=== PATIENT | female | born 1935 | race Caucasian/White ===

== ENCOUNTER 2018-10-04 18:16 | Inpatient (IN) | payer OTHER ==
[2018-10-04 19:14] LABS: Absolute Lymphocytes (CBC) 0.6 K/uL (0.7-4.9); Absolute Monocytes 1.2 K/uL (0.1-1.3); Basophils % 0.2 % (0-1.3); Eosinophils % 0.6 % (0-4.4); Hematocrit 37.4 % (36.0-45.0); Lymphocytes % 4.1 % (15.3-44.8); MPV 8.7 fL (7.6-11.3); Monocytes % 8.8 % (3.3-12.3); RBC Red Blood Cell Count 4.02 M/uL (3.86-4.86)
[2018-10-04 19:41] LABS: ALT/SGPT 14 U/L (12-78); AST/SGOT 18 U/L (15-37); Albumin 3.3 g/dL (3.4-5.0); Alkaline Phosphatase 88 U/L (45-117); BUN Blood Urea Nitrogen 15 mg/dL (7-18); Bicarbonate 29 mmol/L (21-32); Bilirubin Total 0.5 mg/dL (0.2-1.0); CKMB Creatine Kinase MB 1.1 ng/mL (0.3-3.6); Creatine Phosphokinase 41 U/L (26-192); Glucose Level 116 mg/dL (74-106); Magnesium 2.2 mg/dL (1.8-2.4); Potassium 3.8 mmol/L (3.5-5.1); Sodium Level 138 mmol/L (136-145); Troponin I < 0.02 ng/mL (0.0-0.045)
[2018-10-04] MEDS: IPRATROPIUM BROM 0.5MG/2.5ML NEB SCH (19:55)
[2018-10-04 20:07] LABS: Blood Morphology Comment NOT SEEN (NOT SEEN); Platelet Estimate ADEQ; Urine White Blood Cell Casts OK
[2018-10-04] MEDS: CEFTRIAXONE/SWI 1gm 1 GM/10 ML SYR IVP SCH (20:33)
[2018-10-04 20:56] VITALS: BMI 15.6
--- NOTE | 2018-10-04 21:06 | RAD REPORT ---
EXAM DESCRIPTION: Aprilt Pa And Lat (2 Views)10/04/2018 8:57 pm CLINICAL HISTORY: Cough COMPARISON: August 2017 FINDINGS: The lungs are hyperaerated Mild right lung opacities are suspected. Left lung appears clear of acute infiltrate. The heart is normal size IMPRESSION: COPD Mild right lung opacities suspicious for pneumonia
[2018-10-04] MEDS: METHYLPREDNISOLONE 40 MG INJ IV SCH (22:17)
[2018-10-05] MEDS ORDERED: POTASSIUM 25 MEQ EFFERV TAB PO ONE (00:15)
[2018-10-05 01:05] LABS: Urine Appearance CLEAR; Urine Bilirubin NEGATIVE (NEG); Urine Blood NEGATIVE (NEG); Urine Color DK YELLOW; Urine Glucose NEGATIVE (NEG); Urine Protein 2+ (NEG); Urine Specific Gravity 1.025 (1.005-1.030); Urine Urobilinogen 0.2 mg/dL (0.2-1.0); Urine pH 6.5 (5.0-7.0)
[2018-10-05 01:10] LABS: Urine Microscopic Reflex ORDER UMIC
[2018-10-05] MEDS: METHYLPREDNISOLONE 40 MG INJ IV SCH ×3 (01:32→16:59)
[2018-10-05] MEDS: IPRATROPIUM BROM 0.5MG/2.5ML NEB SCH ×4 (02:10→20:00)
[2018-10-05 02:16] LABS: Urine Bacteria <20 /HPF (<20); Urine Culture Reflex Order REFLEXED; Urine Mucus SLIGHT /HPF (NONE SEEN); Urine RBC NONE SEEN /HPF (NONE SEEN)
--- NOTE | 2018-10-05 08:38 | EKG ---
Test Date: 2018-10-04 Test Time: 20:00:19 Underground Miner: RT-O MEASUREMENT RESULTS: Intervals: Rate: 113 AR: 164 QRSD: 68 QT: 330 QTc: 452 [place]: P: 87 AR: 164 QRS: 56 T: 70 INTERPRETIVE STATEMENTS: Sinus tachycardia Septal infarct, age undetermined Abnormal ECG Compared to ECG 08/23/2017 14:34:35 Myocardial infarct finding now present Electronically Signed On 10-05-18 08:36:43 CDT by Neil Abdi
[2018-10-05] MEDS: POLYETHYLENE GLYCOL 17 GM PO SCH ×3 (09:00→20:20)
[2018-10-05] MEDS: MAGNESIUM OXIDE PO SCH ×3 (09:09→20:18)
[2018-10-05] MEDS: CEFTRIAXONE/SWI 1gm 1 GM/10 ML SYR IVP SCH (09:09)
[2018-10-05] MEDS: HOME MED 1 EA UNK (Fluticasone/Salmeterol [Advair 250-50 Diskus] 1 PUFF) IH SCH ×2 (09:11→20:17)
[2018-10-05] MEDS: AZITHROMYCIN IV 250 MG in NA CHLORIDE 0.9% 250 ML IVPB SCH (09:12)
[2018-10-05] MEDS: HYDROMORPHONE 4 MG PO PRN (09:44)
--- NOTE | 2018-10-05 17:11 | HP ---
Date of Admission: 10/04/2018 Chief Complaint: Chest pain and shortness of breath. History Of Present Illness: An 83-year-old, very pleasant female patient who has severe COPD, who is oxygen dependent, came into office with her today with complaints of what she thinks is pleu risy causing chest pain. She started to have these symptoms for last 2-3 days. Her pain has been mo re or less continuous. Denies any fall injury. No rash. No fever, chills. She has severe COPD, an d she is on continuous home oxygen, which she has been using it. She is taking all her medications a s usual. Denies any expectoration or hemoptysis. She says that her shortness of breath is lot worse in last 2-3 days than before. After she was evaluated, she was admitted to hospital with concerns a bout COPD exacerbation and pneumonia. There is no aggravating or relieving factor as far as her pain is concerned. Review of Systems: Respiratory: As mentioned above. All other systems reviewed and negative. Allergies: SHE IS ALLERGIC TO PENICILLIN, SULFA, CODEINE. SHE HAS SIDE EFFECT FROM ACTONEL, FOSAMAX , AND BONIVA, ALL CAUSING EITHER STOMACH UPSET OR BODY ACHE, AND PAIN TYPE OF SIDE EFFECT. Medications: List reviewed. Family History: Not pertinent. Social History: Prior history of smoking, not at present time. Use of alcohol, negative. Past Medical History: Severe COPD, osteoporosis, osteoarthritis, allergic rhinitis, diverticulosis. Past Surgical History: Bladder suspension, cholecystectomy, hysterectomy, arthroscopic knee surgery, back surgery, appendectomy, retinal detachment surgery. Physical Examination: Vital Signs: Height 5 feet 2 inches, weight 85 pounds, temperature 98.7, pulse 107, respiratory rate 20, blood pressure 148/66, oxygen saturation 93% on 2 L nasal cannula oxygen. General: The patient is a thin, cachectic looking, appears weaker than usual. HEENT: Head atraumatic, normocephalic. Conjunctivae nonerythematous. Sclerae white. Mouth, no thr ush or edema noted. Ears/Nose, no mass, lesion, discharge noted. Neck: Supple. No JVD, lymph nodes, bruit, thyromegaly noted. Lungs: Diminished air entry in the right lower lung region. Occasional wheezing noted with expirati on. No rales. Heart: Normal heart sounds, no murmur or gallop. Abdomen: Soft, bowel sounds normal. No guarding, rigidity, tenderness, mass, hepatosplenomegaly, dis tention, or bruit noted. Extremities: No leg edema. No calf tenderness. Skin: No rash, ulcer, cellulitis. Lymphatics: No lymph node enlargement in neck, supraclavicular, infraclavicular region. Neuro: No focal neurological deficit. Chest: Unremarkable. External Genitalia: Deferred. Rectal: Deferred. Laboratory Data: Chest x-ray done after admission shows COPD changes and right lung opacity suspicio us for pneumonia. White count 13.9, hemoglobin 12.2, platelets 244. Sodium 138, potassium 3.8, chloride 100, bicarb 29 , BUN 15, creatinine 0.85, glucose 116. Liver function tests unremarkable. Troponin less than 0.02. Procalcitonin 0.96. TSH 2.7. Lactic acid 2.0. Urinalysis, 1+ leukocyte esterase, 20-50 WBC, bact eria less than 20. Impression: 1.Acute exacerbation of chronic obstructive pulmonary disease. 2.Pneumonia. 3.Diverticulosis. 4.Allergic rhinitis. 5.Osteoarthritis, multiple sites. 6.Osteoporosis. Plan: Admit the patient to hospital for further evaluation and management of this problem. The [facility] ent is appropriate for inpatient and is expected to spend 2 midnights in hospital. We will continue home medications per order. SCD was ordered for DVT prophylaxis. We will start IV antibiotics, whic h are ceftriaxone and azithromycin IV steroid, and nebulizer treatment per order. Fall precaution wa s ordered. We will consult Physical Therapy to help ambulate the patient, and details and plan of tr eatment discussed with the patient. I will see her tomorrow for followup. AICHA/MODL Voice ID: [id number]
[2018-10-05] MEDS ORDERED: METHYLPREDNISOLONE 40 MG INJ IV SCH (20:00)
[2018-10-05] MEDS: SENNOSIDES PO SCH (20:18)
[2018-10-06] MEDS: HYDROMORPHONE 4 MG PO PRN ×3 (00:03→22:53)
[2018-10-06] MEDS: METHYLPREDNISOLONE 40 MG INJ IV SCH (00:05)
[2018-10-06] MEDS: IPRATROPIUM BROM 0.5MG/2.5ML NEB SCH ×4 (02:00→20:00)
--- NOTE | 2018-10-06 02:40 | PN ---
Date of Progress Note: 10/05/2018 Subjective: The patient was seen this morning for followup. No new complaints, problems reported by the patient. Overall, she feels better today than yesterday. Objective: Vital Signs: Reviewed. HEENT: Unremarkable. Lungs: Bilateral good equal air entry. Presence of some rales noted in right lower lung abbasi. Heart: Sounds normal. Abdomen: Soft. Bowel sounds normoactive. No guarding, rigidity, tenderness, distention. Extremities: No leg edema. Impression: 1.Pneumonia. 2.Acute exacerbation of COPD. Plan: We will continue current medication, oxygen, nebulizer treatment, steroid, antibiotics. Ambul ation was encouraged. I will see her tomorrow for followup. Possible discharge sometime over this w eekend. Details were discussed with the patient. AICHA/MODL Voice ID: [id number] Report ID: [id number]
[2018-10-06] MEDS: ENSURE CLEAR 200 ML CAN PO SCH ×2 (09:00→20:13)
[2018-10-06] MEDS: AZITHROMYCIN IV 250 MG in NA CHLORIDE 0.9% 250 ML IVPB SCH (09:07)
[2018-10-06] MEDS: CEFTRIAXONE/SWI 1gm 1 GM/10 ML SYR IVP SCH (09:07)
[2018-10-06] MEDS: MAGNESIUM OXIDE PO SCH ×2 (09:08→20:08)
[2018-10-06] MEDS: HOME MED 1 EA UNK (Fluticasone/Salmeterol [Advair 250-50 Diskus] 1 PUFF) IH SCH ×2 (09:08→20:10)
[2018-10-06] MEDS: predniSONE 20 MG TAB PO SCH (09:11)
--- NOTE | 2018-10-06 16:35 | RAD REPORT ---
EXAM DESCRIPTION: Carmine Pa And Lat (2 Views)10/06/2018 4:25 pm CLINICAL HISTORY: Cough COMPARISON: October 04 FINDINGS: Mild improvement in right lung opacities Left lung appears clear of acute infiltrate. Lungs are hyperaerated. The heart is normal size IMPRESSION: Mild improvement in the right pneumonia
[2018-10-06] MEDS: POLYETHYLENE GLYCOL 17 GM PO SCH (20:07)
[2018-10-06] MEDS: SENNOSIDES PO SCH (20:08)
--- NOTE | 2018-10-07 00:25 | PN ---
Date of Progress Note: 10/06/2018 Subjective: The patient was seen this morning for followup. No new complaints or problems reported by her. Overall, she feels better. Objective: Vital Signs: Reviewed. HEENT: Unremarkable. Lungs: Bilateral good equal air entry. Not using accessory muscles of respiration. Presence of laura e rales noted in right lung base area. Overall better than before. Heart: Sounds normal. Abdomen: Soft. Bowel sounds normal. No guarding, rigidity, tenderness, distention. Extremities: No leg edema. Impression: 1.Pneumonia. 2.Acute exacerbation of chronic obstructive pulmonary disease. 3.Osteoarthritis, multiple sites. 4.Chronic constipation. Plan: The patient reports having bowel movement yesterday. We will continue her current home medica tions. Continue IV antibiotic and oxygen nebulizer treatment. We will repeat chest x-ray today. Di scontinue IV steroid. Start oral prednisone per order. Possible discharge to go home over this week end depending on the patient's condition and chest x-ray results. AICHA/MODL Voice ID: [id number] Report ID: [id number]
[2018-10-07] MEDS: IPRATROPIUM BROM 0.5MG/2.5ML NEB SCH ×4 (02:00→20:00)
[2018-10-07] MEDS: CEFTRIAXONE/SWI 1gm 1 GM/10 ML SYR IVP SCH (08:02)
[2018-10-07] MEDS: predniSONE 20 MG TAB PO SCH (08:02)
[2018-10-07] MEDS: AZITHROMYCIN IV 250 MG in NA CHLORIDE 0.9% 250 ML IVPB SCH (08:03)
[2018-10-07] MEDS: HYDROMORPHONE 4 MG PO PRN ×3 (08:03→23:16)
[2018-10-07] MEDS: ENSURE CLEAR 200 ML CAN PO SCH ×2 (08:06→20:32)
[2018-10-07] MEDS: MAGNESIUM OXIDE PO SCH ×2 (08:07→20:32)
[2018-10-07] MEDS: HOME MED 1 EA UNK (Fluticasone/Salmeterol [Advair 250-50 Diskus] 1 PUFF) IH SCH ×2 (08:07→20:29)
[2018-10-07 10:15] LABS: Absolute Lymphocytes (CBC) 0.6 K/uL (0.7-4.9); Absolute Monocytes 0.9 K/uL (0.1-1.3); Absolute Neutrophil 7.3 K/uL (1.8-8.0); Basophils % 0.9 % (0-1.3); Eosinophils % 0.1 % (0-4.4); Hematocrit 31.1 % (36.0-45.0); Lymphocytes % 6.2 % (15.3-44.8); MPV 8.5 fL (7.6-11.3); Monocytes % 10.3 % (3.3-12.3); RBC Red Blood Cell Count 3.33 M/uL (3.86-4.86)
[2018-10-07] MEDS: FAMOTIDINE 20 MG/2 ML VIAL IV SCH (13:13)
--- NOTE | 2018-10-07 16:38 | PN ---
Date of Progress Note: 10/07/2018 Subjective: The patient was seen this morning for followup. No new complaints or problems reported by the patient. Denies any blood in stool, but yesterday nursing staff noted that her stool was dark green in color to maybe black in color. Denies any abdominal pain, heartburn, indigestion. Shortne ss of breath is better. She is ambulating better. Overall, she feels better as far as pneumonia is concerned. Objective: Vital Signs: Reviewed. HEENT: Unremarkable. Lungs: Bilateral good equal air entry. Not using accessory muscles of respiration. Minimum rales i n the right lung base, overall significantly better than before. Heart: Sounds normal. Abdomen: Soft. Bowel sounds normal. No guarding, rigidity, tenderness, or distention. Extremities: No leg edema. Laboratory Data: White count 8.8, hemoglobin 10.3, platelets 305. Shows improvement in right lower lobe pneumonia. Impression: 1.Pneumonia. 2.Anemia. 3.Acute exacerbation of chronic obstructive pulmonary disease. Plan: We will go ahead and continue oxygen nebulizer treatment, oral prednisone and IV antibiotics f or pneumonia and COPD treatment. The patient's hemoglobin today is 10.3. Upon admission on 10/05/19 19, hemoglobin was 12.2. We will go ahead and order stool guaiac as well as we will repeat blood wor k tomorrow. Depending on patient's condition and blood work results, we will decide if we can plan f or discharge tomorrow or not. We will start patient on IV Pepcid 20 mg IV daily starting today. AICHA/MODL Voice ID: [id number] Report ID: [id number]
[2018-10-07] MEDS: SENNOSIDES PO SCH (20:30)
[2018-10-07] MEDS: POLYETHYLENE GLYCOL 17 GM PO SCH (20:32)
[2018-10-08] MEDS: IPRATROPIUM BROM 0.5MG/2.5ML NEB SCH ×2 (02:00→08:06)
[2018-10-08] MEDS: HYDROMORPHONE 4 MG PO PRN (06:24)
[2018-10-08 07:16] LABS: Absolute Lymphocytes (CBC) 1.5 K/uL (0.7-4.9); Absolute Monocytes 1.1 K/uL (0.1-1.3); Absolute Neutrophil 6.6 K/uL (1.8-8.0); Basophils % 0.2 % (0-1.3); Eosinophils % 0.3 % (0-4.4); Hematocrit 30.9 % (36.0-45.0); Lymphocytes % 16.2 % (15.3-44.8); MPV 7.9 fL (7.6-11.3); Monocytes % 12.1 % (3.3-12.3); RBC Red Blood Cell Count 3.34 M/uL (3.86-4.86)
[2018-10-08] MEDS: HOME MED 1 EA UNK (Fluticasone/Salmeterol [Advair 250-50 Diskus] 1 PUFF) IH SCH (08:04)
[2018-10-08] MEDS: MAGNESIUM OXIDE PO SCH (08:04)
[2018-10-08] MEDS: AZITHROMYCIN IV 250 MG in NA CHLORIDE 0.9% 250 ML IVPB SCH (08:05)
[2018-10-08] MEDS: predniSONE 20 MG TAB PO SCH (08:06)
[2018-10-08] MEDS: CEFTRIAXONE/SWI 1gm 1 GM/10 ML SYR IVP SCH (08:06)
[2018-10-08] MEDS: FAMOTIDINE 20 MG/2 ML VIAL IV SCH (08:07)
[2018-10-08] MEDS: ENSURE CLEAR 200 ML CAN PO SCH (08:08)
[2018-10-08 08:36] LABS: BUN Blood Urea Nitrogen 21 mg/dL (7-18); Bicarbonate 31 mmol/L (21-32); Glucose Level 82 mg/dL (74-106); Potassium 3.9 mmol/L (3.5-5.1); Sodium Level 143 mmol/L (136-145)
[2018-10-08 08:37] VITALS: O2SAT 97
[2018-10-08 14:40] VITALS: BP 146/67; TEMP 98.8
--- NOTE | 2018-10-09 11:46 | DS ---
Date of Discharge: 10/08/2018 Disposition: Discharged to go home. Physical Examination: HEENT: Examination unremarkable. Lungs: Clear to auscultation. Heart: Sounds normal. Abdomen: Soft. Bowel sounds normal. No guarding, rigidity, tenderness, or distention. Extremities: No leg edema. Laboratory Data: Labs done during this hospitalization, white count, initially when she was admitted on 10/04/2018, was 13.9, hemoglobin 12.2, platelets 244. Last white count today 9.3, hemoglobin 10. 4, platelets 337. Yesterday, hemoglobin was 10.3, white count 8.8, platelets 305. Upon admission, s odium 138, potassium 3.8, chloride 100, bicarb 29, BUN 15, creatinine 0.85, glucose 116. Lactic acid 2, procalcitonin 0.96. Liver function tests unremarkable. Today, sodium 143, potassium 3.9, chlori de 106, bicarb 31, BUN 21, creatinine 0.55, glucose 80. Hospital Course: This is an 83-year-old female patient, admitted to the hospital after she came into office with chest pain and shortness of breath. Please see dictated H and P for more information. The patient had atypical chest pain due to pneumonia. Chest x-ray revealed presence of COPD and righ t lung opacity suspicious for pneumonia. She was treated with oxygen nebulizer treatment, IV steroid , and IV antibiotics. Overall, her condition has improved back to her baseline. She is ambulating w ell, has a good appetite and medically she is stable for discharge. She is ambulating well. She has continuous home oxygen that she uses. Her other medical problems remained stable during this hospit alization. Repeat chest x-ray done yesterday shows improvement in her pneumonia. The patient was re ported to have dark green to black colored stool, so yesterday, we did stool guaiac, which was negati ve. Hemoglobin was 10.3 yesterday, today it is 10.4. There is no evidence of any GI blood loss. Final Diagnoses: 1.Acute exacerbation of chronic obstructive pulmonary disease. 2.Pneumonia. 3.Anemia, unspecified. 4.Diverticulosis. 5.Allergic rhinitis. 6.Osteoarthritis, multiple sites. 7.Osteoporosis. Discharge Medications And Instructions: 1.Continue all prior home medications. 2.Prednisone 10 mg, the patient is to take 2 tablets daily for 2 days, then 1 tablet daily for 2 day s, then half tablet daily for 2 days, then stop, take it with food. 3.Cefuroxime 250 mg, the patient is to take 1 tablet 2 times a day for 1 week with food. 4.Azithromycin 250 mg p.o. daily for 4 days, take it with food. 5.Follow up at my office a week after next. AICHA/CHRISSIE Voice ID: [id number] Report ID: [id number]
== END 2018-10-08 13:00 | disposition home or self-care (01) | DRG 190 ==
LOC: 2ND 18:16
PROVIDERS: ADMIT Internal Medicine; ATTEND Internal Medicine
DX: J44.1 Chronic obstructive pulmonary disease with (acute) exacerbation (principal); J18.9 Pneumonia, unspecified organism; J44.0 Chronic obstructive pulmonary disease with (acute) lower respiratory infection; Z87.891 Personal history of nicotine dependence; Z99.81 Dependence on supplemental oxygen; K57.90 Diverticulosis of intestine, part unspecified, without perforation or abscess without bleeding; D64.9 Anemia, unspecified; K59.09 Other constipation; J30.9 Allergic rhinitis, unspecified; M15.9 Polyosteoarthritis, unspecified; M81.0 Age-related osteoporosis without current pathological fracture; Z88.5 Allergy status to narcotic agent; Z88.0 Allergy status to penicillin; Z88.2 Allergy status to sulfonamides
CPT/HCPCS: 36415; 71046; 80048; 80053; 81003; 81015; 82274; 82550; 82553; 83605; 83735; 84132; 84145; 84443; 84484; 85025; 87086; 87088; 93005; 97116; 97163; 97530; J0456; J0696; J2920; J7512

== ENCOUNTER 2019-05-23 17:56 | Inpatient (IN) | payer OTHER ==
[2019-05-23] MEDS ORDERED: AZITHROMYCIN IV 500 MG in NA CHLORIDE 0.9% 250 ML IVPB ONE (19:22)
[2019-05-23] MEDS: IPRATROPIUM BROM 0.5MG/2.5ML NEB SCH (20:00)
[2019-05-23] MEDS: ALBUTEROL 2.5 MG/3 ML NEB SOL NEB SCH (20:00)
--- NOTE | 2019-05-23 20:13 | RAD REPORT ---
EXAM DESCRIPTION: RAD - Chest Pa And Lat (2 Views) - 05/23/2019 8:00 pm CLINICAL HISTORY: pneumonia Chest pain. COMPARISON: Chest Pa And Lat (2 Views) dated 10/06/2018; Chest Pa And Lat (2 Views) dated 10/04/2018; Chest Single View dated 08/23/2017; Chest Single View dated 04/13/2016 FINDINGS: A very prominent emphysematous pattern is seen throughout the lungs. Subtle opacities in t he right costophrenic angle may represent a mild area of infiltrate or aspiration. The heart is shailesh l in size. No displaced fractures. IMPRESSION: Subtle infiltrate or aspiration in the right costophrenic angle suspected.
[2019-05-23 20:49] LABS: Absolute Lymphocytes (CBC) 0.8 K/uL (0.7-4.9); Basophils % 0.4 % (0-1.3); Hematocrit 35.2 % (36.0-45.0); Lymphocytes % 10.6 % (15.3-44.8); MPV 9.3 fL (7.6-11.3); RBC Red Blood Cell Count 3.81 M/uL (3.86-4.86)
[2019-05-23] MEDS ORDERED: CEFTRIAXONE 1 GM/NS 50 ML 1 GM/50 ML BAG IV SCH (21:00)
[2019-05-23 21:11] LABS: Albumin 3.5 g/dL (3.4-5.0); Bilirubin Total 0.4 mg/dL (0.2-1.0); Magnesium 2.1 mg/dL (1.8-2.4); Potassium 3.8 mmol/L (3.5-5.1); Protein, Total 7.4 g/dL (6.4-8.2); Thyroid Stimulating Hormone 2.92 uIU/mL (0.360-3.740)
[2019-05-23] MEDS ORDERED: AZITHROMYCIN 500 MG INJ IVPB ONE (22:16)
[2019-05-23] MEDS ORDERED: NA CHLORIDE 0.9% 500 ML ONE (22:37)
[2019-05-23] MEDS ORDERED: CEFTRIAXONE/SWI 1gm 1 GM/10 ML SYR ONE (22:43)
[2019-05-24] MEDS: METHYLPREDNISOLONE 40 MG INJ IV SCH ×3 (01:08→16:10)
[2019-05-24] MEDS: IPRATROPIUM BROM 0.5MG/2.5ML NEB SCH ×4 (02:00→19:20)
[2019-05-24] MEDS: ALBUTEROL 2.5 MG/3 ML NEB SOL NEB SCH ×4 (02:00→19:20)
[2019-05-24] MEDS ORDERED: HYDROMORPHONE ORAL 4 MG TAB PO PRN (06:51)
--- NOTE | 2019-05-24 07:23 | HP ---
Date of Admission: 05/23/2019 Chief Complaint: Cough, congestion, shortness of breath. History Of Present Illness: This is 83-year-old, very frail female patient who has advanced COPD, on continuous home oxygen, came into office with her with 2 days history of cough, chest conges tion, coughing up some mucus which is white to slightly yellow in color, having low-grade fever and s hortness of breath and wheezing. Since she is sick, she gets short of breath just taking 3 to 4 step s and she gets short of breath and has to sit down. She uses her oxygen all the time. She also has lot of wheezing with this. After she was evaluated I was concerned about pneumonia and COPD exacerba tion and she was admitted to the hospital with this problem for further evaluation and management. Review of Systems: Respiratory: As mentioned above. Constitutional: As mentioned above. All other systems reviewed and negative. Allergies: TO SULFA, PENICILLIN, CODEINE, HAD SIDE EFFECTS FROM ACTONEL, FOSAMAX AND BONIVA EITHER C AUSING STOMACH UPSET OR BODY ACHE TYPE OF SIDE EFFECT. Medications: List reviewed. Family History: Not pertinent. Social History: Prior history of smoking, not at present time. Use of alcohol negative. Past Medical History: Severe COPD for which she is oxygen dependent, osteoporosis, osteoarthritis at multiple sites, allergic rhinitis, diverticulosis. Past Surgical History: Bladder suspension, cholecystectomy, hysterectomy, arthroscopic knee surgery, back surgery, appendectomy, retinal detachment surgery. Physical Examination: Vital Signs: Height 5 feet, weight 78 pounds, temperature 96.9, pulse 94, respiratory rate 18, blood pressure 124/70, oxygen saturation 94%. This was on 2 L nasal cannula oxygen. General: Patient appears weak and tired and slightly sleepy looking, not in any respiratory distress at rest but just taking 3 or 4 steps in the exam room. She gets into mild distress which gets stephen r when she sits down to rest. HEENT: Head atraumatic, normocephalic. Conjunctivae nonerythematous. Sclerae white. Mouth, no thr ush or edema noted. Ears/Nose, no mass, lesion, discharge noted. Neck: Supple. No JVD, lymph nodes, bruit, thyromegaly noted. Lungs: Presence of rales noted in the right lower lung region. Heart: Normal heart sounds, no murmur or gallop. Abdomen: Soft, bowel sounds normal. No guarding, rigidity, tenderness, mass, hepatosplenomegaly, dis tention, or bruit noted. Extremities: No leg edema. No calf tenderness. Skin: No rash, ulcer, cellulitis. Lymphatics: No lymph node enlargement in neck, supraclavicular, infraclavicular region. Neuro: No focal neurological deficit. Chest: Unremarkable. External Genitalia: Deferred. Rectal: Deferred. Laboratory Data: White count 7.6, hemoglobin 11.7, platelets 153. Sodium 140, potassium 3.8, chlori de 103, bicarb 31, BUN 33, creatinine 0.94, glucose 104. Liver function tests unremarkable, procalci tonin 0.67. TSH 2.92. Chest x-ray shows right lower lobe pneumonia. Impression: 1.Pneumonia. 2.Acute exacerbation of chronic obstructive pulmonary disease. 3.Anemia, unspecified. 4.Osteoarthritis, multiple sites. 5.Diverticulosis. 6.Allergic rhinitis. 7.Osteoporosis. 8.Admit patient to hospital for further evaluation and management of this problem. The patient is a ppropriate for inpatient and is expected to spend 2 midnights in hospital. We will go ahead and give her oxygen nebulizer treatment, IV steroid, IV antibiotic, which will be azithromycin and ceftriaxon e. SCD was ordered for DVT prophylaxis. Home medications will be continued per order and we will se e her tomorrow for followup. I also talked to her about her advance directive in presence of her hus band and in the event of cardiopulmonary arrest. Patient and her , they both agree that she w ould not want any heroic measures like CPR, defibrillation, or ventilator support and they requested comfort care to be provided in those situation and DNR order was written in the chart. I will see he r tomorrow morning for followup. AICHA/MODL Voice ID: [id number]
[2019-05-24] MEDS ORDERED: HYDROCODONE/APAP 5/325 MG TAB ONE (07:40)
[2019-05-24] MEDS: HOME MED 1 EA UNK (Fluticasone/Salmeterol [Advair 250-50 Diskus] 1 PUFF) IH SCH ×2 (08:46→20:40)
[2019-05-24] MEDS: CEFTRIAXONE/SWI 1gm 1 GM/10 ML SYR IV SCH ×2 (08:46→20:35)
[2019-05-24] MEDS: HOME MED 1 EA UNK (Umeclidinium Bromide [Incruse Ellipta] 1 PUFF) IH SCH (09:00)
[2019-05-24] MEDS: AZITHROMYCIN IV 250 MG in NA CHLORIDE 0.9% 250 ML IVPB SCH (09:36)
[2019-05-24 17:43] VITALS: BMI 15.2
[2019-05-24] MEDS: POLYETHYL GLY 3350 17 GM/DOSE PO SCH (20:35)
[2019-05-24] MEDS: PROMOD 30 ML DOSE PO SCH (20:35)
[2019-05-24] MEDS: SENOSIDES 8.6 MG TAB PO SCH (20:39)
--- NOTE | 2019-05-25 01:02 | PN ---
Date of Progress Note: 05/24/2019 Subjective: The patient was seen this morning for followup. Her was present with her at bedside. She looks better than yesterday, feels better than yesterday. Does not look as tired as yesterday. Objective: Vital Signs: Reviewed. HEENT: Unremarkable. Lungs: Bilateral good equal air entry, presence of rales noted in the right lower lung field, unchanged from yesterday. Heart: Heart sounds normal. Abdomen: Soft, bowel sounds normal. No guarding, rigidity, tenderness, or distention. Extremities: No leg edema. Impression: 1. Pneumonia. 2. Acute exacerbation of chronic obstructive pulmonary disease. 3. Chronic back pain. 4. Chronic constipation. Plan: We will continue current medication, oxygen, nebulizer treatment, steroids, antibiotics. We will consult Physical Therapy to help ambulate the patient. I will see her tomorrow for followup. We will repeat chest x-ray tomorrow. Possible discharge to go home tomorrow depending on her condition and chest x-ray result. AICHA/CHRISSIE Voice ID: [id number] Report ID: [id number] MTDD
[2019-05-25] MEDS: METHYLPREDNISOLONE 40 MG INJ IV SCH ×3 (01:08→17:25)
[2019-05-25] MEDS: ALBUTEROL 2.5 MG/3 ML NEB SOL NEB SCH ×4 (01:55→19:39)
[2019-05-25] MEDS: IPRATROPIUM BROM 0.5MG/2.5ML NEB SCH ×4 (01:55→19:39)
[2019-05-25] MEDS: HOME MED 1 EA UNK (Fluticasone/Salmeterol [Advair 250-50 Diskus] 1 PUFF) IH SCH ×2 (08:02→20:00)
[2019-05-25] MEDS: CEFTRIAXONE/SWI 1gm 1 GM/10 ML SYR IV SCH ×2 (08:03→20:00)
[2019-05-25] MEDS: HOME MED 1 EA UNK (Umeclidinium Bromide [Incruse Ellipta] 1 PUFF) IH SCH (08:03)
[2019-05-25] MEDS: AZITHROMYCIN IV 250 MG in NA CHLORIDE 0.9% 250 ML IVPB SCH (08:03)
[2019-05-25] MEDS: PROMOD 30 ML DOSE PO SCH ×2 (08:03→20:00)
--- NOTE | 2019-05-25 15:32 | EKG ---
Test Date: 2019-05-25 Test Time: 12:59:58 Steam Generating Powerplant Mechanic: ANSLEY MEASUREMENT RESULTS: Intervals: Rate: 105 MD: 172 QRSD: 78 QT: 334 QTc: 441 [place]: P: 84 MD: 172 QRS: 78 T: 74 INTERPRETIVE STATEMENTS: Sinus tachycardia Right atrial enlargement Borderline ECG Compared to ECG 10/04/2018 20:00:19 Atrial abnormality now present Myocardial infarct finding no longer present Electronically Signed On 05-25-19 15:30:53 MANAGER SAFE by Neil Abdi
--- NOTE | 2019-05-25 18:32 | PN ---
Date of Progress Note: 05/25/2019 Subjective: Patient was seen this morning for followup. She still has lot of cough, chest congestio n, gets short of breath with activity, but overall feels better today than yesterday. Objective: Vital Signs: Reviewed. HEENT: Unremarkable. Lungs: Bilateral good equal entry. Presence of some rales noted in lower half of right lung field. Heart: Sounds normal. Abdomen: Soft. Bowel sounds normal. No guarding, rigidity, tenderness, or distention. Extremities: No leg edema. Impression: 1.Pneumonia. 2.Acute exacerbation of chronic obstructive pulmonary disease. Plan: We will continue current medication. Continue oxygen, steroid antibiotic, nebulizer treatment and after I saw the patient while she was on telemetry, monitor her heart rate went up to 140 and junior muller called me with that. Nurse was instructed to evaluate the patient and get a stat EKG, vital sign s, and we will decide further plan depending on those findings. AICHA/MODL Voice ID: [id number] Report ID: [id number]
[2019-05-25] MEDS: SENOSIDES 8.6 MG TAB PO SCH (19:59)
[2019-05-25] MEDS: POLYETHYL GLY 3350 17 GM/DOSE PO SCH (19:59)
[2019-05-26] MEDS: ALBUTEROL 2.5 MG/3 ML NEB SOL NEB SCH ×3 (02:15→14:35)
[2019-05-26] MEDS: IPRATROPIUM BROM 0.5MG/2.5ML NEB SCH ×4 (02:15→19:50)
[2019-05-26 05:36] LABS: Magnesium 1.9 mg/dL (1.8-2.4); Potassium 3.2 mmol/L (3.5-5.1)
[2019-05-26 05:57] LABS: Absolute Lymphocytes (CBC) 0.4 K/uL (0.7-4.9); Basophils % 0.1 % (0-1.3); Lymphocytes % 7.4 % (15.3-44.8); MPV 9.5 fL (7.6-11.3)
[2019-05-26] MEDS: CEFTRIAXONE/SWI 1gm 1 GM/10 ML SYR IV SCH ×2 (08:25→20:21)
[2019-05-26] MEDS: METHYLPREDNISOLONE 40 MG INJ IV SCH ×3 (08:25→16:21)
[2019-05-26] MEDS: AZITHROMYCIN IV 250 MG in NA CHLORIDE 0.9% 250 ML IVPB SCH (08:26)
[2019-05-26] MEDS: HOME MED 1 EA UNK (Fluticasone/Salmeterol [Advair 250-50 Diskus] 1 PUFF) IH SCH ×2 (08:26→20:21)
[2019-05-26] MEDS: PROMOD 30 ML DOSE PO SCH ×2 (08:26→20:21)
[2019-05-26] MEDS: HOME MED 1 EA UNK (Umeclidinium Bromide [Incruse Ellipta] 1 PUFF) IH SCH (08:27)
[2019-05-26] MEDS ORDERED: POTASSIUM 25 MEQ EFFERV TAB PO ONE (09:00)
[2019-05-26 09:28] LABS: Urine White Blood Cell Casts OK
[2019-05-26 09:29] LABS: Anisocytosis 1+; Blood Morphology Comment NOTED (NOT SEEN); Platelet Estimate ADEQ
--- NOTE | 2019-05-26 10:20 | RAD REPORT ---
EXAM DESCRIPTION: RAD - Chest Pa And Lat (2 Views) - 05/26/2019 9:10 am CLINICAL HISTORY: pneumonia Chest pain. COMPARISON: Chest Pa And Lat (2 Views) dated 05/23/2019; Chest Pa And Lat (2 Views) dated 10/06/2018; Chest Pa And Lat (2 Views) dated 10/04/2018; Chest Single View dated 08/23/2017 FINDINGS: Emphysematous changes are present throughout the lungs. Poorly defined scarring is present in both lung apices. Mild to moderate improvement is seen in the ill-defined opacity in the right co stophrenic sulcus. The heart is normal in size. No displaced fractures. IMPRESSION: COPD is present with mild to moderate improvement in right lung base infiltrate since co mparative study.
[2019-05-26] MEDS ORDERED: POTASSIUM CL SA 10 MEQ TAB PO ONE (13:27)
[2019-05-26] MEDS: LEVALBUTEROL 0.63 MG/3 ML NEB NEB SCH (19:50)
[2019-05-26] MEDS: SENOSIDES 8.6 MG TAB PO SCH (20:20)
[2019-05-26] MEDS: POLYETHYL GLY 3350 17 GM/DOSE PO SCH (20:21)
[2019-05-27] MEDS: METHYLPREDNISOLONE 40 MG INJ IV SCH ×2 (00:02→08:23)
[2019-05-27] MEDS: IPRATROPIUM BROM 0.5MG/2.5ML NEB SCH ×4 (01:00→19:40)
[2019-05-27] MEDS: LEVALBUTEROL 0.63 MG/3 ML NEB NEB SCH ×4 (01:00→19:40)
[2019-05-27 06:59] LABS: Potassium 3.9 mmol/L (3.5-5.1)
[2019-05-27] MEDS: PROMOD 30 ML DOSE PO SCH ×2 (08:19→20:42)
[2019-05-27] MEDS: AZITHROMYCIN IV 250 MG in NA CHLORIDE 0.9% 250 ML IVPB SCH (08:23)
[2019-05-27] MEDS: CEFTRIAXONE/SWI 1gm 1 GM/10 ML SYR IV SCH ×2 (08:23→20:41)
[2019-05-27] MEDS: HOME MED 1 EA UNK (Fluticasone/Salmeterol [Advair 250-50 Diskus] 1 PUFF) IH SCH ×2 (08:24→20:41)
[2019-05-27] MEDS: HOME MED 1 EA UNK (Umeclidinium Bromide [Incruse Ellipta] 1 PUFF) IH SCH (08:24)
[2019-05-27] MEDS: predniSONE 20 MG TAB PO SCH ×2 (09:00→20:41)
[2019-05-27] MEDS ORDERED: POTASSIUM CL SA 10 MEQ TAB PO ONE (09:00)
[2019-05-27] MEDS: METOPROLOL TAR 25 MG TAB PO SCH ×2 (10:12→18:02)
--- NOTE | 2019-05-27 11:05 | PN ---
Date of Progress Note: 05/26/2019 Subjective: Patient was seen this morning for followup. No new complaints or problems reported. Sh deep still gets short of breath with any activity, but overall better than before with any activity. He r heart rate goes up to 131/40 range, and it is sinus tachycardia on telemetry recording. Objective: Vital Signs: Reviewed. HEENT: Unremarkable. Lungs: Clear to auscultation on the left side. Right side has rales in lower lung field, unchanged from yesterday. Not using accessory muscles of respiration at rest. Heart: Sounds normal. Abdomen: Soft. Bowel sounds normal. No guarding, rigidity, tenderness, or distention. Extremities: No leg edema. Laboratory Data: White count 5.3, hemoglobin 11.4, platelets 211. Sodium 144, potassium 3.2, chlori de 109, bicarb 29, BUN 32, creatinine 0.83, glucose 131, magnesium 1.9. Impression: 1.Pneumonia. 2.Acute exacerbation of chronic obstructive pulmonary disease. 3.Hypokalemia. 4.Anemia. 5.Sinus tachycardia. Plan: We will go ahead and continue current antibiotic. Last chest x-ray had shown improvement in p neumonia. We will continue oxygen steroid antibiotics. Replace electrolyte per protocol. Repeat blood work tomorrow and I will see he r tomorrow for followup. AICHA/MODL Voice ID: [id number] Report ID: [id number]
--- NOTE | 2019-05-27 11:17 | PN ---
Date of Progress Note: 05/27/2019 Subjective: Patient was seen this morning for followup. Her was with her at bedside. Denie d any new complaints except her heart rate still goes up when she does any activity. Denies any cons tipation problem. Objective: Vital Signs: Reviewed. HEENT: Unremarkable. Lungs: Presence of rales in right basal region. Overall, this is better than last few days. Not us ing accessory muscles of respiration. Heart: Sounds normal. Abdomen: Soft. Bowel sounds normal. No guarding, rigidity, tenderness, or distention. Extremities: No leg edema. Laboratory Data: Sodium 143, potassium 3.9, chloride 105, bicarb 33, BUN 33, creatinine 0.91, glucos e 126. Impression: 1.Pneumonia. 2.Acute exacerbation of chronic obstructive pulmonary disease. 3.Sinus tachycardia. 4.Anemia. 5.Hypokalemia. Plan: We will go ahead and continue oxygen nebulizer treatment antibiotics. We will discontinue IV steroid and start her on oral prednisone 20 mg twice a day. We will start her on low-dose metoprolol 12.5 mg p.o. twice a day. Her systolic blood pressure was in the range of 130 to 140 range today. Ambulation was encouraged. I will see her tomorrow for followup, depending on her condition we will decide if we can discharge her in the next day or 2 days or not. Details were discussed with patient and her . AICHA/CHRISSIE Voice ID: [id number] Report ID: [id number]
[2019-05-27] MEDS: POLYETHYL GLY 3350 17 GM/DOSE PO SCH (20:38)
[2019-05-27] MEDS: SENOSIDES 8.6 MG TAB PO SCH (20:41)
[2019-05-27] MEDS ORDERED: MIRTAZAPINE 15 MG TAB PO SCH (21:00)
[2019-05-28] MEDS: IPRATROPIUM BROM 0.5MG/2.5ML NEB SCH (01:45)
[2019-05-28] MEDS: LEVALBUTEROL 0.63 MG/3 ML NEB NEB SCH (01:45)
[2019-05-28 04:54] LABS: Potassium 4.1 mmol/L (3.5-5.1)
[2019-05-28] MEDS: METOPROLOL TAR 25 MG TAB PO SCH (05:13)
[2019-05-28 07:21] VITALS: O2SAT 96
[2019-05-28 09:39] VITALS: BP 135/77; TEMP 98.7
--- NOTE | 2019-05-29 03:19 | DS ---
Date of Discharge: 05/28/2019 Subjective: Patient was seen this morning for followup. No new complaints or problems reported by h er. She is feeling overall much better in the last few days. Breathing has gotten better. Her hear t rate is better. Objective: Vital Signs: Reviewed. HEENT: Unremarkable. Lungs: Clear to auscultation. No rhonchi. No rales. Heart: Sounds normal. Abdomen: Soft. Bowel sounds normal. No guarding, rigidity, tenderness. Extremities: No leg edema. Laboratory Data: Upon admission, sodium 140, potassium 3.8, chloride 103, bicarb 31, BUN 33, creatin ine 0.94, glucose 104, procalcitonin 0.67. TSH 2.92. Today, sodium 142, potassium 4.1, chloride 107 , bicarb 30, BUN 34, creatinine 0.76, glucose 117. Her lowest potassium was 3.2 on 05/26/2019, which was corrected. Upon admission, white count 7.6, hemoglobin 11.7, platelets 153, and on 05/26/2019, white count 5.3, hemoglobin 11.4, platelets 211. Discharge Medications And Instructions: 1.Continue prior home medication. 2.Follow up at my office in 2-3 weeks. 3.Take azithromycin 250 mg p.o. daily for 4 days, take it with food. 4.Cefuroxime 250 mg p.o. 2 times a day for 1 week, take it with food. 5.Metoprolol 25 mg, take half a tablet by mouth 2 times a day. 6.Prednisone 10 mg, take 2 tablets daily for 4 days, then 1 tablet daily for 4 days, then 1/2 tablet daily for 4 days, then stop. Take it with food. Hospital Course: This is an 83-year-old pleasant female patient, admitted to the hospital after she came into office with cough, congestion, shortness of breath. Please see dictated H and P for more i nformation. Patient was admitted to the hospital with pneumonia, acute exacerbation of COPD, and she was started on oxygen nebulizer treatment, IV steroid, IV antibiotic, which was azithromycin and cef triaxone. Chest x-ray did reveal presence of pneumonia. Repeat chest x-ray showed improvement in pn eumonia. During this hospitalization, she had a problem with sinus tachycardia with any activity. H eart rate would go up to 140. We started her on low-dose metoprolol yesterday 12.5 mg 2 times a day. She responded very well to that. Overall, today, she feels a lot better. Medically, she is stable for discharge. Final Diagnoses: 1.Pneumonia. 2.Acute exacerbation of chronic obstructive pulmonary disease. 3.Sinus tachycardia. 4.Anemia. 5.Hypokalemia. 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 7.Diverticulosis. 8.Allergic rhinitis. 9.Osteoporosis. AICHA/MODL Voice ID: [id number] Report ID: [id number]
== END 2019-05-28 09:58 | disposition home or self-care (01) | DRG 190 ==
LOC: 4TH 17:56
PROVIDERS: ADMIT Internal Medicine; ATTEND Internal Medicine
DX: J44.0 Chronic obstructive pulmonary disease with (acute) lower respiratory infection (principal); J18.9 Pneumonia, unspecified organism; J44.1 Chronic obstructive pulmonary disease with (acute) exacerbation; E87.6 Hypokalemia; M15.9 Polyosteoarthritis, unspecified; M81.0 Age-related osteoporosis without current pathological fracture; J30.9 Allergic rhinitis, unspecified; K57.90 Diverticulosis of intestine, part unspecified, without perforation or abscess without bleeding; D64.9 Anemia, unspecified; M54.9 Dorsalgia, unspecified; K59.09 Other constipation; R00.0 Tachycardia, unspecified; Z99.81 Dependence on supplemental oxygen
CPT/HCPCS: 36415; 71046; 80048; 80053; 83735; 84132; 84145; 84443; 85025; 93005; 94640; J0456; J0696; J2920; J7030; J7040; J7512

== ENCOUNTER 2021-11-04 13:56 | Emergency (ER) | payer OTHER ==
--- NOTE | 2021-11-04 14:22 | RAD REPORT ---
EXAM DESCRIPTION: RAD - Chest Single View - 11/04/2021 2:13 pm CLINICAL HISTORY: DYSPNEA Chest pain. COMPARISON: Chest Pa And Lat (2 Views) dated 04/03/2021; Chest Pa And Lat (2 Views) dated 06/17/2020; Chest Pa And Lat (2 Views) dated 05/26/2019; Chest Pa And Lat (2 Views) dated 05/23/2019 FINDINGS: Portable technique limits examination quality. Bilateral interstitial lung opacities are present, greater on the right with a small right pleural ef fusion. This is favored to represent infection/pneumonia. The heart is normal in size. No displaced f ractures.
[2021-11-04 14:24] LABS: Arterial Blood Carboxyhemoglob 0.9 % (0-1.5); Blood Gas Oxyhemoglobin 96.4 % (94-97); Blood O2 Saturation 98.2 % (92-98.5)
[2021-11-04] MEDS ORDERED: METHYLPREDNISOLONE 125 MG INJ ONE (14:32)
[2021-11-04] MEDS ORDERED: LEVALBUTEROL 1.25 MG/3 ML NEB ONE ×2 (14:33→15:02)
[2021-11-04] MEDS ORDERED: IPRATROPIUM BROM 0.5MG/2.5ML ONE ×2 (14:33→15:02)
[2021-11-04] MEDS ORDERED: NA CHLORIDE 0.9% 500 ML ONE (14:33)
[2021-11-04] MEDS ORDERED: MAGNESIUM SULFATE 1 gm IVPB 1 GM/100 ML BAG IV ONE (14:33)
[2021-11-04 14:50] LABS: Absolute Lymphocytes (CBC) 1.1 K/uL (0.7-4.9); Hematocrit 37.4 % (36.0-45.0); Lymphocytes % 6.7 % (15.3-44.8); MPV 8.3 fL (7.6-11.3); RBC Red Blood Cell Count 3.91 M/uL (3.86-4.86)
[2021-11-04 14:59] LABS: Protime INR 0.96
[2021-11-04] MEDS ORDERED: CEFTRIAXONE 1000 MG/VIAL ONE (15:39)
[2021-11-04] MEDS ORDERED: NA CHLORIDE 0.9% 250 ML ONE (15:40)
[2021-11-04] MEDS ORDERED: AZITHROMYCIN 500 MG INJ IVPB ONE (15:40)
[2021-11-04 15:58] LABS: Albumin 3.5 g/dL (3.4-5.0); Bilirubin Direct 0.1 mg/dL (0-0.2); Bilirubin Total 0.3 mg/dL (0.2-1.0); Protein, Total 7.9 g/dL (6.4-8.2)
--- NOTE | 2021-11-04 16:17 | ER ---
Nurse's Notes [facility] Name: Elina Vu Age: 86 yrs Sex: Female : 1935 Arrival Date: 11/04/2021 Time: 13:59 Bed 3 Private MD: Diagnosis: Pneumonia, unspecified organism;Severe sepsis with septic shock;Hypoxemia;Hypothermia, not associated with low environmental temperature Presentation: 11/04 14:00 Chief complaint: EMS states: Toned out for difficulty breathing, pt was 70% on 4 lpm jl7 NC, put on CPAP and she's 96% on arrival to ED, hx of COPD. Coronavirus screen: difficulty breathing, Client presents with at least one sign or symptom that may indicate coronavirus-19. Standard/surgical mask placed on the client. Provider contacted for isolation considerations. Ebola Screen: No symptoms or risks identified at this time. Initial Sepsis Screen: Does the patient meet any 2 criteria? RR > 20 per min. HR > 90 bpm. Does the patient have a suspected source of infection? No. Patient's initial sepsis screen is negative. Risk Assessment: Do you want to hurt yourself or someone else? Patient reports no desire to harm self or others. Onset of symptoms was November 04, 2021. 14:00 Method Of Arrival: EMS: [facility] jl7 14:00 Acuity: KANG 2 jl7 Triage Assessment: 14:00 General: Appears distressed, uncomfortable, cachectic, Behavior is calm, cooperative, jl7 appropriate for age. Pain: Denies pain. Neuro: Level of Consciousness is awake, alert, obeys commands, Oriented to person, place, time, situation. Cardiovascular: Patient's skin is warm and dry. Rhythm is regular. Respiratory: Airway is patent Respiratory effort is even, labored, with retractions, Respiratory pattern is symmetrical, tachypnea. Derm: Skin is dry, Skin is pale, Skin temperature is cool. Historical: - Allergies: 15:18 Codeine; jl7 15:18 PENICILLINS; jl7 15:18 Sulfa (Sulfonamide Antibiotics); jl7 - PMHx: 15:18 COPD; jl7 - Immunization history:: Adult Immunizations unknown. - Social history:: Smoking status: unknown. - Family history:: not pertinent. - Hospitalizations: : No recent hospitalization is reported. Screenin:00 Abuse screen: Denies threats or abuse. Denies injuries from another. Nutritional jl7 screening: No deficits noted. Tuberculosis screening: No symptoms or risk factors identified. Fall Risk IV access (20 points). Total Yun Fall Scale indicates No Risk (0-24 pts). Assessment: 14:00 General: See triage. jl7 14:00 Reassessment: RT at bedside, pt placed on BiPap. jl7 17:30 Reassessment: Dr. Porter at bedside to place central line. jl7 21:14 Reassessment: family updated on transfer for pt. ems at bedside to take pt to [address] Vital Signs: 14:00 BP 119 / 86; Pulse 102; Resp 35; Temp 97.9; Pulse Ox 100% on BiPAP; jl7 15:00 BP 123 / 97; Pulse 103; Resp 31; Pulse Ox 99% on 100% BiPAP; Weight 36.29 kg (R); jl7 15:30 BP 128 / 92; Pulse 105; Resp 24; Pulse Ox 98% on 100% BiPAP; jl7 16:00 BP 91 / 52; Pulse 104; Resp 25; Pulse Ox 99% ; jl7 16:15 BP 89 / 70; Pulse 100; Resp 26; Pulse Ox 99% on 60% BiPAP; jl7 17:00 BP 91 / 71; Pulse 103; Resp 24; Temp 94.0(C); Pulse Ox 99% ; jl7 17:45 BP 106 / 81; Pulse 96; Resp 23; Pulse Ox 96% ; jl7 18:00 BP 108 / 74; Pulse 98; Resp 25; Pulse Ox 100% ; jl7 18:45 BP 116 / 84; Pulse 115; Resp 25; Temp 96.3; Pulse Ox 99% ; jl7 20:00 BP 108 / 75; Pulse 102; Resp 22; Temp 97.2(C); Pulse Ox 99% on BiPAP; 5 21:13 BP 104 / 67; Pulse 104; Resp 25; Temp 97.1(C); Pulse Ox 98% on BiPAP; 5 ED Course: 13:59 Patient arrived in ED. rn 13:59 Yony Porter MD is Attending Physician. rn 14:00 Arm band placed on right wrist. jl7 14:00 Patient has correct armband on for positive identification. Placed in gown. Bed in low jl7 position. Call light in reach. Side rails up X2. Client placed on continuous cardiac and pulse oximetry monitoring. NIBP monitoring applied. Warm blanket given. 14:15 XRAY CXR (1 view) In Process Unspecified. EDMS 14:15 First set of blood cultures drawn by me. Inserted saline lock: 22 gauge in right jl7 forearm, using aseptic technique. Blood collected. 14:30 Inserted saline lock: 22 gauge in left antecubital area, using aseptic technique. Blood jl7 collected. 14:30 Initial lab(s) drawn, by me, sent to lab. Second set of blood cultures drawn. jl7 15:16 Mayra Child, ALON is Primary Nurse. jl7 15:18 Triage completed. jl7 16:00 Aguirre cath inserted, using sterile technique, 16 Fr., by mi, balloon inflated, to jl7 gravity drainage, returned clear yellow urine. Patient tolerated well. 16:00 Thermoregulation: Pearl blanket applied. jl7 16:16 Guanaco Torres MD is Hospitalizing Provider. rn 17:30 Assisted provider with central line placement. Set up central line tray. Triple lumen jl7 line placed in right femoral. Line placed by Yony Porter MD Placement verified by blood return, Dressed with Tape, Tegaderm, Patient tolerated well. Before procedure, did Practitioner(s) obtain informed consent? No. Patient \\T\\ family education about procedure, CLABSI prevention and S/S of infection? Yes. Time-out/Briefing performed prior to start of procedure? Yes. Was handwashing/sanitizing done immediately prior to procedure? Yes. Was patient positioned to in a way to prevent air embolism? Yes. Was procedure site sterilized? Yes, with chlorhexidine. Was the site allowed to dry? Was local anesthetic and/or sedation utilized? Yes. During the procedure, did the Practitioner(s) maintain a sterile field? Yes. Were unused ports clamped during insertion? Was a 2nd qualified MD obtained after 3 unsuccessful insertion attempts? No. Was blood aspirated from each lumen? Yes. After the procedure, did the Practitioner(s) clean the site and apply a sterile dressing? Yes. 18:36 Initiated transfer to [facility], spoke to Lianne Flores. 19:31 SARS-COV-2 RT PCR (Document "Date of Onset" if Symptomatic) Sent. [facility] 20:22 Pt accepted for Transfer to [facility]# [id number] is Dr[address] Lianne Mckinley. 22:14 Patient transferred, IV remains in place. 5 Administered Medications: 14:25 Drug: Xopenex (levalbuterol) (3) 1.25 mg Route: Inhalation; jl7 17:29 Follow up: Response: No adverse reaction 7 14:25 Drug: AtroVENT (ipratropium) Aerosol 0.5 mg Route: Inhalation; jl7 17:29 Follow up: Response: No adverse reaction 7 14:33 Drug: SOLU-Medrol (methylPrednisoLONE) 125 mg Route: IVP; Site: left forearm; jl7 17:29 Follow up: Response: No adverse reaction jl7 14:35 Drug: Magnesium Sulfate 1 grams Route: IVPB; Infused Over: 1 hrs; Site: left forearm; jl7 15:35 Follow up: Response: No adverse reaction; IV Status: Completed infusion; IV Intake: jl7 100ml 14:35 Drug: NS 0.9% 500 ml Route: IV; Rate: bolus; Site: left forearm; jl7 15:15 Follow up: Response: No adverse reaction; IV Status: Completed infusion; IV Intake: jl7 500ml 15:35 Drug: Rocephin (cefTRIAXone) 1 grams Route: IV; Rate: calculated rate; Site: right jl7 forearm; 15:40 Follow up: Response: No adverse reaction; IV Status: Completed infusion jl7 15:35 Drug: Zithromax (azithromycin) 500 mg Route: IVPB; Infused Over: 1 hrs; Site: left jl7 forearm; 16:35 Follow up: Response: No adverse reaction; IV Status: Completed infusion jl7 16:35 Follow up: IV Intake: 250ml 7 16:20 Drug: NS 0.9% 1000 ml Route: IV; Rate: 1000 ml; Site: left forearm; jl7 17:30 Follow up: IV Status: Completed infusion; IV Intake: 1000ml 7 Medication: 14:00 VIS not applicable for this client. jl7 Intake: 15:15 IV: 500ml; Total: 500ml. jl7 15:35 IV: 100ml; Total: 600ml. jl7 16:35 IV: 250ml; Total: 850ml. jl7 17:30 IV: 1000ml; Total: 1850ml. jl7 Outcome: 16:16 Decision to Hospitalize by Provider. rn 18:33 ER care complete, transfer ordered by . rn 22:02 Patient left the ED. vc1 22:13 Transferred by ground EMS to other acute care facility: [facility]. Transfer sm5 form completed. X-rays sent w/ patient. 22:13 Condition: stable 22:13 Instructed on the need for transfer. Signatures: Dispatcher [employer] EDMS Yony Porter MD MD rn Leal, Jahala, RN RN jl7 Jayla Araya Sarah, RN RN sm5 Hailee Alvarez RN RN vc1 Corrections: (The following items were deleted from the chart) 20:17 20:00 BP 108 / 75; Pulse 102bpm; Resp 22bpm; Pulse Ox 99% BiPAP; Temp 100F; sm5 sm5
--- NOTE | 2021-11-04 16:17 | EDPHYS ---
Physician Documentation [facility] Name: Elina Vu Age: 86 yrs Sex: Female : 1935 Arrival Date: 11/04/2021 Time: 13:59 Bed 3 Private MD: ED Physician Yony Porter HPI: 11/04 14:10 This 86 yrs old Female presents to ER via Unassigned with complaints of sob. rn 14:10 The patient has shortness of breath at rest. Onset: The symptoms/episode began/occurred rn at an unknown time. Duration: The symptoms are continuous. The patient's shortness of breath is aggravated by exertion, light activity, talking, is alleviated by application of supplemental oxygen. Associated signs and symptoms: Pertinent positives: productive cough, Pertinent negatives: fever, hemoptysis. Severity of symptoms: At their worst the symptoms were severe in the emergency department the symptoms have improved. The patient has experienced similar episodes in the past. The patient has not recently seen a physician. EMS reports called out for difficulty breathing, O2 sats in 70s, was very weak, placed on CPAP with good response. Sats up to 96%. Reports cough and sob for unknown duration. No chest pain, no abd pain.. Historical: - Allergies: 15:18 Codeine; jl7 15:18 PENICILLINS; jl7 15:18 Sulfa (Sulfonamide Antibiotics); jl7 - PMHx: 15:18 COPD; jl7 - Immunization history:: Adult Immunizations unknown. - Social history:: Smoking status: unknown. - Family history:: not pertinent. - Hospitalizations: : No recent hospitalization is reported. ROS: 14:10 Constitutional: Negative for fever, chills, and weight loss, Eyes: Negative for injury, rn pain, redness, and discharge, Neck: Negative for injury, pain, and swelling, Cardiovascular: Negative for chest pain, palpitations, and edema, Respiratory: + sob and cough Abdomen/GI: Negative for abdominal pain, nausea, vomiting, diarrhea, and constipation, Back: Negative for injury and pain, MS/Extremity: Negative for injury and deformity, Skin: Negative for injury, rash, and discoloration, Neuro: Negative for headache, numbness, tingling, and seizure. Exam: 14:10 Constitutional: Thin female, appears frail and in repsiratory distress, on CPAP rn Head/Face: Normocephalic, atraumatic. Eyes: Periorbital areas with no swelling, redness, or edema. Cardiovascular: Tachycardic, regular Respiratory: + moderate tachypnea with poor inspiratory air flow, + faint wheezing. Abdomen/GI: Soft, non-tender Skin: Warm, dry MS/ Extremity: Pulses equal, no cyanosis. Neuro: Awake and alert, GCS 15 Vital Signs: 14:00 BP 119 / 86; Pulse 102; Resp 35; Temp 97.9; Pulse Ox 100% on BiPAP; jl7 15:00 BP 123 / 97; Pulse 103; Resp 31; Pulse Ox 99% on 100% BiPAP; Weight 36.29 kg (R); jl7 15:30 BP 128 / 92; Pulse 105; Resp 24; Pulse Ox 98% on 100% BiPAP; jl7 16:00 BP 91 / 52; Pulse 104; Resp 25; Pulse Ox 99% ; jl7 16:15 BP 89 / 70; Pulse 100; Resp 26; Pulse Ox 99% on 60% BiPAP; jl7 17:00 BP 91 / 71; Pulse 103; Resp 24; Temp 94.0(C); Pulse Ox 99% ; jl7 17:45 BP 106 / 81; Pulse 96; Resp 23; Pulse Ox 96% ; jl7 18:00 BP 108 / 74; Pulse 98; Resp 25; Pulse Ox 100% ; jl7 18:45 BP 116 / 84; Pulse 115; Resp 25; Temp 96.3; Pulse Ox 99% ; jl7 20:00 BP 108 / 75; Pulse 102; Resp 22; Temp 97.2(C); Pulse Ox 99% on BiPAP; sm5 21:13 BP 104 / 67; Pulse 104; Resp 25; Temp 97.1(C); Pulse Ox 98% on BiPAP; sm5 Procedures: 17:48 Central Line: the site was prepped with in sterile fashion, a triple lumen catheter was rn inserted, in the right femoral vein, in 1 attempts. placement was verified, by blood return, the site was dressed with Tegaderm, using sterile technique, the patient tolerated the procedure, well. MDM: 13:59 Patient medically screened. rn 16:14 Differential diagnosis: Bronchitis Chronic Obstructive Pulmonary Disease Myocardial rn Infarction pneumonia, Pneumothorax pulmonary edema, reactive airway disease, Sepsis. Data reviewed: vital signs, nurses notes, lab test result(s), EKG, radiologic studies, plain films, and as a result, I will admit patient. Counseling: I had a detailed discussion with the patient and/or guardian regarding: the historical points, exam findings, and any diagnostic results supporting the discharge/admit diagnosis, lab results, radiology results, the need for further work-up and treatment in the hospital. Response to treatment: the patient's symptoms have mildly improved after treatment, and as a result, I will admit patient. Admission orders: after a detailed discussion of the patient's condition and case, the admit orders are written by me. ED course: Sepsis bolus ordered and started, only 36 kg weight. Elevated initial lactate. Severe sepsis identified. Sepsis reevaluation complete. Abx ordered.. 17:03 ED course: Consulted with Dr. Torres, wants me to confirm code status, states he rn is not sure at this time, patient states would want everything done, including chest compressions and intubation.. 17:16 ED course: ABG has shown improvement, fluid bolus almost complete, if MAP < 65 will rn start pressor and place central line. 17:48 ED course: Central line placed for another reading SBP < 90. Fluid bolus still going, rn current SBP 92. Sepsis reevaluation complete. . 18:31 ED course: Pt evaluated by Dr. Torres, states believes Dr. Palm out of town and no rn pulmonary critical care available, requests transfer for higher level of care. Transfer initiated to [facility]. . 11/04 14:01 Order name: BMP; Complete Time: 16:14 rn 11/04 14:01 Order name: Blood Culture Adult (2) rn 11/04 14:01 Order name: CBC with Diff; Complete Time: 14:59 rn 11/04 14:01 Order name: Hepatic Function; Complete Time: 16:14 rn 11/04 14:01 Order name: NT PRO-BNP; Complete Time: 16:14 rn 11/04 14:01 Order name: PT-INR; Complete Time: 15:21 rn 11/04 14:01 Order name: Ptt, Activated; Complete Time: 15:21 rn 11/04 14:01 Order name: ABG; Complete Time: 14:59 rn 11/04 14:02 Order name: Flu; Complete Time: 18:04 rn 11/04 14:04 Order name: Influenza Screen (A ; Complete Time: 16:14 EDOR 11/04 14:04 Order name: Lactate; Complete Time: 16:14 rn 11/04 14:06 Order name: SARS-COV-2 RT PCR (Document "Date of Onset" if Symptomatic) 11/04 14:09 Order name: Troponin High Sensitivity 11/04 14:01 Order name: XRAY CXR (1 view); Complete Time: 14:59 11/04 14:01 Order name: EKG; Complete Time: 14:01 rn 11/04 14:01 Order name: Cardiac monitoring; Complete Time: 17:28 11/04 14:01 Order name: EKG - Nurse/Tech; Complete Time: 17:28 11/04 14:01 Order name: BIPAP 11/04 17:04 Order name: ABG; Complete Time: 18:04 11/04 18:21 Order name: Lactate; Complete Time: 19:56 11/04 21:05 Order name: Lactate Sepsis 2 HR Follow-up; Complete Time: 21:16 EDOR 11/04 14:01 Order name: IV Saline Lock; Complete Time: 17:28 rn 11/04 14:01 Order name: Labs collected and sent; Complete Time: 17:28 11/04 14:01 Order name: O2 Per Protocol; Complete Time: 14:16 11/04 14:01 Order name: O2 Sat Monitoring; Complete Time: 14:16 rn Administered Medications: 14:25 Drug: Xopenex (levalbuterol) (3) 1.25 mg Route: Inhalation; 7 17:29 Follow up: Response: No adverse reaction jl7 14:25 Drug: AtroVENT (ipratropium) Aerosol 0.5 mg Route: Inhalation; jl7 17:29 Follow up: Response: No adverse reaction 7 14:33 Drug: SOLU-Medrol (methylPrednisoLONE) 125 mg Route: IVP; Site: left forearm; jl7 17:29 Follow up: Response: No adverse reaction jl7 14:35 Drug: Magnesium Sulfate 1 grams Route: IVPB; Infused Over: 1 hrs; Site: left forearm; jl7 15:35 Follow up: Response: No adverse reaction; IV Status: Completed infusion; IV Intake: jl7 100ml 14:35 Drug: NS 0.9% 500 ml Route: IV; Rate: bolus; Site: left forearm; jl7 15:15 Follow up: Response: No adverse reaction; IV Status: Completed infusion; IV Intake: jl7 500ml 15:35 Drug: Rocephin (cefTRIAXone) 1 grams Route: IV; Rate: calculated rate; Site: right jl7 forearm; 15:40 Follow up: Response: No adverse reaction; IV Status: Completed infusion jl7 15:35 Drug: Zithromax (azithromycin) 500 mg Route: IVPB; Infused Over: 1 hrs; Site: left jl7 forearm; 16:35 Follow up: Response: No adverse reaction; IV Status: Completed infusion jl7 16:35 Follow up: IV Intake: 250ml jl7 16:20 Drug: NS 0.9% 1000 ml Route: IV; Rate: 1000 ml; Site: left forearm; 7 17:30 Follow up: IV Status: Completed infusion; IV Intake: 1000ml jl7 Disposition: 16:14 Critical Care:. rn Disposition Summary: 11/04/21 18:33 Transfer Ordered Transfer Location: [facility] rn Reason: Higher level of care rn Condition: Fair(11/04/21 18:33) rn Problem: new(11/04/21 18:33) rn Symptoms: have improved(11/04/21 18:33) rn Accepting Physician: Dr. Mckinley(11/04/21 22:02) vc1 Diagnosis - Pneumonia, unspecified organism(11/04/21 18:33) rn - Severe sepsis with septic shock rn - Hypoxemia(11/04/21 18:33) rn - Hypothermia, not associated with low environmental temperature rn Forms: - Medication Reconciliation Form rn - SBAR form brick burner head time excluding procedures: 16:14 Critical care time: Bedside Care: 35 minutes. Total time: 35 minutes rn Signatures: Dispatcher [employer] EDPa Sanchez MD MD kdr Nieto, Roman, MD MD rn Roszak, Josh, PA PA jr8 Mayra Child, RN RN jl7 Rajwinder Cervantes, RN RN [email or web address] Hailee Alvarez, RN RN vc1 Corrections: (The following items were deleted from the chart) 18:32 16:16 Inpatient Admission rn rn 18:32 16:16 Guanaco Torres rn rn 18:32 16:16 Intensive Care Unit rn rn 18:32 16:16 Stable rn rn 18:32 16:16 new rn rn 18:32 16:16 have improved rn rn 18:32 16:16 Standard rn rn 18:32 16:16 rn rn 18:32 16:16 Pneumonia, unspecified organism rn rn 18:32 16:16 Severe sepsis without septic shock rn rn 18:32 16:16 Hypoxemia rn rn 20:04 18:33 Dr. wasserman jr8 22:02 20:04 Dr. Mckinley jr8 vc1
[2021-11-04] MEDS ORDERED: NA CHLORIDE 0.9% 1,000 ML ONE (16:24)
[2021-11-04 22:25] VITALS: BP 104/67; TEMP 97.1; O2SAT 98
--- NOTE | 2021-11-05 07:54 | EKG ---
Test Date: 2021-11-04 Test Time: 15:55:00 Drop Wire Aliner: MB MEASUREMENT RESULTS: Intervals: Rate: 106 KS: 158 QRSD: 76 QT: 356 QTc: 472 [place]: P: 78 KS: 158 QRS: 268 T: 80 INTERPRETIVE STATEMENTS: Sinus tachycardia Right atrial enlargement Right superior axis deviation Pulmonary disease pattern Abnormal ECG Compared to ECG 05/25/2019 12:59:58 Right superior axis now present Electronically Signed On 11-05-21 07:52:10 CDT by Neil Abdi
== END 2021-11-04 22:02 | disposition short-term general hospital (02) ==
LOC: ER 13:56
PROC: 06HM33Z Insertion of Infusion Device into Right Femoral Vein, Percutaneous Approach (ICD-10-PCS; principal; 2021-11-04)
DX: J18.9 Pneumonia, unspecified organism (principal); R65.21 Severe sepsis with septic shock; R09.02 Hypoxemia; R68.0 Hypothermia, not associated with low environmental temperature; J44.9 Chronic obstructive pulmonary disease, unspecified; Z20.822 Contact with and (suspected) exposure to COVID-19; Z88.0 Allergy status to penicillin; Z88.2 Allergy status to sulfonamides; Z88.5 Allergy status to narcotic agent
CPT/HCPCS: 93005; 87040 ×2; 85025; 80048; 36415; 85610; 80076; 83605 ×3; 85730; 84484; 83880; 87804 ×2; 71045; 82805 ×2; 94660 ×2; 51702; 99285; 36556; U0003; J0456; J3475; J7050; J7040; J7030; J2930